=== PATIENT | male | born 1950 | race Caucasian/White ===

== ENCOUNTER → 2017-04-13 | Outpatient (CLI) | payer MEDICARE, OTHER | END | disposition home or self-care (01) | LOC: GMAH 11:42 | PROVIDERS: ATTEND Family Medicine | DX: Z12.5 Encounter for screening for malignant neoplasm of prostate (principal); E78.2 Mixed hyperlipidemia | CPT/HCPCS: 84443; 84550; G0103 ==

== ENCOUNTER → 2017-10-24 | Outpatient (CLI) | payer MEDICARE, OTHER ==
--- NOTE | 2017-10-25 04:01 | CT ---
Procedure: CT ABDOMEN RUNOFF ANGIO WITH AND WITHOUT BILATERAL Exam Date: 10/24/2017 Ordering Provider: TOMÁS YOUSIF Clinical Indication: PAIN IN UNSPECIFIED LIMB Comparison: None Technique: Using a helical scanner, sequential axial imaging of the abdominal aorta, common and external iliac arteries bilaterally, and lower extremity arteries bilaterally to each foot was obtained following the administration of intravenous contrast. At an independent workstation 3-D reconstructions of the abdominal aorta, iliac systems bilaterally, and lower extremity arteries bilaterally was obtained. This exam was performed according to our departmental dose optimization program which includes use of automated exposure control, adjustment of the mA and/or kV according to patient size and/or use of iterative reconstruction technique. Findings: Review of conventional CT imaging was obtained. Cholelithiasis without evidence of acute cholecystitis. 13 mm left renal cyst. Questionable mural thickening of the gastric antrum without discrete mass visualized, possibly related to changes of chronic gastritis. Enlarged prostate gland indents the underside of the bladder. Fluid containing right inguinal hernia. The abdominal aorta is of normal diameter. There is no dissection or aneurysm. Mild calcified atherosclerotic plaque. The celiac and SMA origins are intact. There is a single right renal artery without stenosis. There is a single left renal artery without stenosis. GLORIA is patent. The right common iliac artery is patent. The right external iliac artery is patent. The left common iliac artery is patent. The left external iliac artery is patent. Right lower extremity: The common femoral artery is patent. The profunda femoris artery is patent. The superficial femoral artery is patent. The popliteal artery is patent. 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 The tibioperoneal trunk is patent. The peroneal artery is patent to the foot. The posterior tibial artery is patent to the foot. Left lower extremity: The common femoral artery is patent. The profunda femoris artery is patent. The superficial femoral artery is patent. The popliteal artery is patent. The anterior tibial artery is patent to the foot. The tibioperoneal trunk is patent. The peroneal artery is patent to the foot. The posterior tibial artery is patent to the foot. Impression: 1. 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 No other significant stenosis in the arteries of either lower extremity. 2. No abdominal aortic aneurysm or dissection. 3. Additional nonemergent findings as above. Electronically signed by: Jason Diaz MD 10/25/2017 3:59 AM PSYCH NURSE
== END | disposition home or self-care (01) ==
LOC: CT 16:09
PROVIDERS: ATTEND Family Medicine
DX: M79.609 Pain in unspecified limb (principal)

== ENCOUNTER → 2017-10-31 | Outpatient (CLI) | payer MEDICARE, OTHER ==
--- NOTE | 2017-10-31 17:48 | MRI ---
EXAM DESCRIPTION: Lumbar Spine w/o Contrast CLINICAL HISTORY: LOW BACK PAIN COMPARISON: None Available. TECHNIQUE: Multiplanar multisequence MR imaging of the lumbar spine was performed without contrast FINDINGS: There is moderate loss of height and desiccation of the L5-S1 disc. There is no evidence of acute fracture. The vertebral bodies are normal in configuration and signal. The conus medullaris and filum terminale and cauda equina appear unremarkable. There is no significant stenosis. No spondylolisthesis or spondylolysis seen. IMPRESSION: No acute abnormalities. Electronically signed by: Richard Flor 10/31/2017 5:47 PM [facility]
== END | disposition home or self-care (01) ==
LOC: MRI 06:52
PROVIDERS: ATTEND Family Medicine
DX: M54.5 Low back pain (principal)

== ENCOUNTER 2018-08-05 12:55 | Emergency (ER) | payer MEDICARE, OTHER ==
[2018-08-05 13:23] VITALS: TEMP 100.5
--- NOTE | 2018-08-05 14:32 | ED.PDOC ---
History of Present Illness - General Chief Complaint: Skin/Abrasion/Tear Stated Complaint: Hives Time Seen by Provider: 08/05/18 13:59 Source: patient Exam Limitations: no limitations - History of Present Illness Initial Comments: Francesco Sanches 68 y/o male stated that he developed skin rash on his back both sides yesterday and went down to right leg.Denies ill contact,no fever no travel ouside [place].Stated no itching but with flu like illness,no nausea/vomiting. Timing/Duration: yesterday Severity: moderate Location: torso Improving Factors: nothing Worsening Factors: nothing Associated Symptoms: denies symptoms Allergies/Adverse Reactions: Allergies NO KNOWN ALLERGY Allergy (Verified 07/20/16 15:59) Home Medications: Ambulatory Orders Valacyclovir HCl [Valtrex] 1 gm PO TID 7 Days #21 tab 08/05/18 predniSONE 10 mg PO BID 7 Days #14 tab 08/05/18 Review of Systems - Review of Systems Constitutional: States: no symptoms reported EENTM: States: no symptoms reported Respiratory: States: no symptoms reported Cardiology: States: no symptoms reported Gastrointestinal/Abdominal: States: no symptoms reported Genitourinary: States: no symptoms reported Musculoskeletal: States: no symptoms reported Skin: States: see HPI Neurological: States: no symptoms reported Past Medical History (General) - Patient Medical History Hx Stroke: Yes - Hx of migraine induced stroke Hx Congestive Heart Failure: No Hx Hypertension: Yes Hx Diabetes: Yes Hx Gastroesophageal Reflux: - Hx hiatal hernia Hx MRSA: No Surgical History: other - Vaccination History Hx Tetanus, Diphtheria Vaccination: No Hx Influenza Vaccination: No Hx Pneumococcal Vaccination: No - Social History Hx Tobacco Use: Yes - Quit 30 yrs ago Hx Alcohol Use: No Family Medical History - Family History Father Family History: Unknown Living Status: Unknown Hx Cardiac Disease: Yes Physical Exam - Physical Exam General Appearance: Alert, Comfortable, No apparent distress Eyes, Ears, Nose, Throat Exam: PERRL/EOMI, normal ENT inspection, TMs normal Neck: full range of motion, supple Cardiovascular/Chest: normal peripheral pulses, regular rate, rhythm, no gallop , no murmur Respiratory: chest non-tender, lungs clear, normal breath sounds, no respiratory distress Gastrointestinal/Abdominal: normal bowel sounds, non tender, soft, no organomegaly Back Exam: normal inspection, no CVA tenderness Extremity: non-tender, normal inspection, no calf tenderness Neurologic: no motor/sensory deficits, alert, oriented x 3 Skin Exam: warm/dry, normal color Skin Problem Location: torso Skin Character: erythema, other - maculopapular rash back and legs Lymphatic: no adenopathy Progress - Progress Progress: 08/05/18 14:40 Vital Signs - 8 hr 08/05/18 13:21 Temperature 100.5 F H Pulse Rate [ 105 H Left Radial] Respiratory 20 Rate Blood Pressure 154/83 [Left Arm] O2 Sat by Pulse 96 Oximetry 08/05/18 15:27 Discuss test result with patient non specific and with his rash and flu like symptoms he might have early symptoms of shingles and mentioned that sometimes not painful and when lesions dry up he might feel the pain.Also talked about giving steroids that it might make his bloo sugar a litlle bit up. 08/05/18 15:29 - Results/Orders Results/Orders: 08/05/18 14:49 STREP A SCREEN CULTURE Stat Laboratory Results - last 24 hr 08/05/18 08/05/18 08/05/18 14:13 14:13 14:13 WBC 11.7 H RBC 5.25 Hgb 16.3 Hct 47.7 MCV 90.9 MCH 31.1 H MCHC 34.2 RDW 13.6 Plt Count 288 MPV 8.2 Absolute Neuts (auto) 8.70 H Absolute Lymphs (auto) 1.70 Absolute Monos (auto) 1.10 H Absolute Eos (auto) 0.20 Absolute Basos (auto) 0.00 Neutrophils % 74.1 Lymphocytes % 14.6 L Monocytes % 9.3 H Eosinophils % 1.6 Basophils % 0.4 Sodium 135 Potassium 3.8 Chloride 104 Carbon Dioxide 24 Anion Gap 10.8 L BUN 25 H Creatinine 1.25 BUN/Creatinine Ratio 20.0 Random Glucose 138 H Serum Osmolality 276.7 Calcium 9.2 Total Bilirubin 0.4 AST 26 ALT 28 Alkaline Phosphatase 44 Serum Total Protein 7.3 Albumin 4.2 Globulin 3.1 Albumin/Globulin Ratio 1.4 Monoscreen Negative Group A Strep Rapid 08/05/18 14:49 WBC RBC Hgb Hct MCV MCH MCHC RDW Plt Count MPV Absolute Neuts (auto) Absolute Lymphs (auto) Absolute Monos (auto) Absolute Eos (auto) Absolute Basos (auto) Neutrophils % Lymphocytes % Monocytes % Eosinophils % Basophils % Sodium Potassium Chloride Carbon Dioxide Anion Gap BUN Creatinine BUN/Creatinine Ratio Random Glucose Serum Osmolality Calcium Total Bilirubin AST ALT Alkaline Phosphatase Serum Total Protein Albumin Globulin Albumin/Globulin Ratio Monoscreen Group A Strep Rapid Negative Departure - Departure Clinical Impression: Rash and other nonspecific skin eruption Time of Disposition: 15:31 Disposition: Discharge to Home or Self Care Condition: Fair Departure Forms: ED Discharge - Pt. Copy, Patient Portal Self Enrollment Instructions: Matthew Castro (DC) Referrals: Lazaro Dhillon MD [Primary Care Provider] - 1-2 Weeks Prescriptions: predniSONE 10 mg PO BID 7 Days #14 tab Valacyclovir HCl [Valtrex] 1 gm PO TID 7 Days #21 tab Home Medications: Ambulatory Orders Valacyclovir HCl [Valtrex] 1 gm PO TID 7 Days #21 tab 16/18 predniSONE 10 mg PO BID 7 Days #14 tab //18 Additional Instructions: Return to ER as needed;Need to sign up with primary MD
[2018-08-05 15:43] VITALS: BP 146/96; O2SAT 98
== END 2018-08-05 15:45 | disposition home or self-care (01) ==
LOC: ER 12:55
DX: R21 Rash and other nonspecific skin eruption (principal); I10 Essential (primary) hypertension; E11.9 Type 2 diabetes mellitus without complications; Z86.73 Personal history of transient ischemic attack (TIA), and cerebral infarction without residual deficits; Z87.891 Personal history of nicotine dependence

== ENCOUNTER → 2019-08-08 | Outpatient (CLI) | payer MEDICARE, OTHER | LOC: GMA MATASK 10:20 | PROVIDERS: ATTEND Family Medicine | DX: I10 Essential (primary) hypertension (principal); Z12.5 Encounter for screening for malignant neoplasm of prostate | CPT/HCPCS: 84443; 84550; G0103 ==

== ENCOUNTER → 2020-08-12 | Outpatient (CLI) | payer MEDICARE, OTHER | LOC: GMA MATASK 16:37 | PROVIDERS: ATTEND Family Medicine | DX: I10 Essential (primary) hypertension (principal); Z12.5 Encounter for screening for malignant neoplasm of prostate; E11.9 Type 2 diabetes mellitus without complications | CPT/HCPCS: 84443; 84550; G0103 ==

== ENCOUNTER 2020-11-23 17:17 | Emergency (ER) | payer MEDICARE, OTHER ==
[2020-11-23 17:31] VITALS: O2SAT 96
--- NOTE | 2020-11-23 17:47 | ED.PDOC ---
History of Present Illness - General Chief Complaint: General Stated Complaint: COVID POSITIVE AND NOT GETTING BETTER Time Seen by Provider: 11/23/20 17:44 Information Source: patient - History of Present Illness Initial Comments: NAUSEA TODAY, COVID -19 X 10 DAYS, DENIES SOB, FIRST DAY HAS FELT NAUSEATED. ELEVATED BLOOD PRESSURE TODAY SO PCP TOLD HIM TO GO TO ER. Pain Radiation: no radiation Improving Factors: nothing Worsening Factors: nothing Review of Systems - Review of Systems Constitutional: States: no symptoms reported. Denies: chills, fever EENTM: States: no symptoms reported Respiratory: States: cough. Denies: orthopnea, short of breath, wheezing Cardiology: States: no symptoms reported Gastrointestinal/Abdominal: States: see HPI, nausea. Denies: diarrhea, vomiting Genitourinary: States: no symptoms reported Musculoskeletal: States: muscle pain Skin: States: no symptoms reported Neurological: States: no symptoms reported Past Medical History (General) - Patient Medical History Hx Stroke: Yes - Hx of migraine induced stroke Hx Congestive Heart Failure: No Hx Hypertension: Yes Hx Diabetes: Yes Hx Gastroesophageal Reflux: - Hx hiatal hernia Hx Cancer: No Hx Hepatitis C: No Hx MRSA: No - Vaccination History Hx Tetanus, Diphtheria Vaccination: No Hx Influenza Vaccination: No Hx Pneumococcal Vaccination: No - Social History Hx Tobacco Use: No Hx Alcohol Use: No Hx Substance Use: No Hx Substance Use Treatment: No Hx Depression: No Family Medical History - Family History Father Family History: Unknown Living Status: Unknown Hx Cardiac Disease: Yes Physical Exam - Physical Exam General Appearance: Alert, Well Developed, Well Groomed, Well Hydrated, Well Nourished Eyes, Ears, Nose, Throat Exam: PERRL/EOMI, normal ENT inspection, TMs normal, pharynx normal Neck: non-tender, full range of motion, supple, normal inspection Respiratory: chest non-tender, lungs clear, normal breath sounds Cardiovascular/Chest: normal peripheral pulses, regular rate, rhythm, no edema, no gallop, no JVD Peripheral Pulses: No deficit Gastrointestinal/Abdominal: normal bowel sounds, non tender, soft, no organomegaly Pelvic Exam: normal external exam, normal adnexa Neurologic: no motor/sensory deficits, alert, normal mood/affect, oriented x 3 Skin Exam: normal color, warm/dry Lymphatic: no adenopathy Departure - Departure Clinical Impression: COVID-19 Nausea & vomiting Qualifiers: Vomiting type: unspecified Vomiting Intractability: non-intractable Qualified Code(s): R11.2 - Nausea with vomiting, unspecified Time of Disposition: 19:56 Disposition: Discharge to Home or Self Care Condition: Good Departure Forms: ED Discharge - Pt. Copy, Patient Portal Self Enrollment Instructions: Coronavirus Disease 2019 (COVID-19) (DC) Diet: full liquid diet Referrals: Peterson Tineo MD [Primary Care Provider] - 1-2 Weeks Prescriptions: Ondansetron Odt [Zofran ODT] 8 mg PO Q8H PRN #15 tab PRN Reason: nausea, vomiting Home Medications: Ambulatory Orders Amlodipine Besylate-Benazepril [Amlodipine Besylate/Benaz 10-40 mg] 1 cap PO 11/23/20 Atorvastatin Calcium 11/23/20 Ondansetron Odt [Zofran ODT] 8 mg PO Q8H PRN #15 tab 11/23/20 metFORMIN HCL [Glucophage] 500 mg PO 11/23/20 Additional Instructions: RETURN FOR NEW OR WORSENING SYMPTOMS, UNABLE TO KEEP PO DOWN.
[2020-11-23] MEDS: ONDANSETRON INJ 4 MG/2 ML VIAL IV ONE (17:54)
[2020-11-23] MEDS: SODIUM CHLORIDE 0.9% 1000ML 1,000 ML IVS ONE (17:54)
--- NOTE | 2020-11-23 19:14 | RAD ---
EXAM: XR Chest, 1 View CLINICAL HISTORY: The patient is 70 years old and is Male; COVID 19, WEAKNESS TECHNIQUE: Single view of the chest. COMPARISON: November 22, 2011 FINDINGS: Lungs: Unremarkable. No consolidation. Pleural space: Unremarkable. No pneumothorax. Heart: Unremarkable. No cardiomegaly. Mediastinum: Unremarkable. Bones/joints: Vertebral osteophytes. No acute fracture. Upper abdomen: No free air in the visualized upper abdomen. IMPRESSION: No acute cardiopulmonary process identified. Electronically signed by: Jennifer Gomez MD 11/23/2020 7:12 PM [employer]
[2020-11-23 20:06] VITALS: BP 148/88; TEMP 97.7
== END 2020-11-23 19:58 | disposition home or self-care (01) ==
LOC: ER 17:17
DX: U07.1 COVID-19 (principal); R11.2 Nausea with vomiting, unspecified; I10 Essential (primary) hypertension; E11.9 Type 2 diabetes mellitus without complications; Z79.84 Long term (current) use of oral hypoglycemic drugs; Z86.73 Personal history of transient ischemic attack (TIA), and cerebral infarction without residual deficits